=== PATIENT | male | born 1955 | race African-American/Black ===

== ENCOUNTER 2025-06-26 00:04 | Emergency (ER) | payer SELFPAY ==
[~2025-06-26] VITALS: Ht 167.6 cm; Wt 81.8 kg
[2025-06-26 00:08] VITALS: O2SAT 99
[2025-06-26 00:16] VITALS: TEMP 36.7
[2025-06-26] MEDS: METOCLOPRAMIDE HCL 10MG/2ML VIAL IV ONE (01:18)
[2025-06-26] MEDS: MORPHINE SULFATE 4 MG/ML INJ (FOR IV/IM USE) IV ONE (01:19)
[2025-06-26 01:31] LABS: BASOPHILS % 0.7 % (0.0-2.0); EOSINOPHILS % 1.3 % (0.0-5.0); HEMATOCRIT. 40.4 % (42.0-52.0); HEMOGLOBIN. 14.1 g/dL (14.0-18.0); LYMPHOCYTES % 35.1 % (20.0-50.0); MEAN PLATELET VOLUME 8.4 fl (7.4-10.4); MONOCYTES % 10.0 % (2.0-8.0); NEUTROPHILS % 52.9 % (40.0-76.0); PLATELET 182 x1000/uL (130-400); RED BLOOD CELL COUNT 4.63 mill/uL (4.7-6.1); RED CELL DISTRIBUTION WIDTH 12.1 % (11.6-14.6)
[2025-06-26 01:45] LABS: CREATININE 0.8 mg/dL (0.6-1.3); TROPONIN I HIGH SENSITIVITY 6 ng/L (3.0-53); UREA NITROGEN BLOOD 15 mg/dL (9-23)
[2025-06-26 01:47] LABS: ASPARTATE AMINOTRANSFERASE 17 IU/L (<34); BILIRUBIN DIRECT 0.1 mg/dL (<=3.0); BILIRUBIN TOTAL 0.5 mg/dL (0.1-1.0); PROTEIN TOTAL 6.8 g/dL (6.0-8.3)
[2025-06-26 04:03] LABS: TROPONIN I HIGH SENSITIVITY 5 ng/L (3.0-53)
[2025-06-26 05:20] VITALS: BP 141/78; PULSE 96; RESP 20; O2SAT 97
== END 2025-06-26 05:26 | disposition home or self-care (01) ==
LOC: ER 00:04
DX: I10 Essential (primary) hypertension (principal); R51.9 Headache, unspecified
CPT/HCPCS: 99285; 96374; 70450; 71045; 96375; 80076; 80048; 85025; 84484; 36415; 93005; J2765; J2270